=== PATIENT | male | born 1975 ===

== ENCOUNTER → 2017-09-27 | Outpatient (CLI) | payer OTHER | END | disposition home or self-care (01) | LOC: LAB 08:15 | DX: I10 Essential (primary) hypertension (principal); E11.9 Type 2 diabetes mellitus without complications; E03.8 Other specified hypothyroidism; E78.2 Mixed hyperlipidemia; K92.1 Melena; D64.0 Hereditary sideroblastic anemia; M81.0 Age-related osteoporosis without current pathological fracture; N40.0 Benign prostatic hyperplasia without lower urinary tract symptoms ==

== ENCOUNTER 2020-10-01 09:18 | Outpatient (CLI) | payer OTHER | END 2020-10-01 16:26 | disposition home or self-care (01) | LOC: OFIC 805 09:18 | PROVIDERS: ATTEND Otolaryngology | DX: H61.111 Acquired deformity of pinna, right ear (principal) ==

== ENCOUNTER 2020-10-12 11:44 | Outpatient (CLI) | payer OTHER | END 2020-10-12 16:04 | disposition home or self-care (01) | LOC: OFIC 805 11:44 | PROVIDERS: ATTEND Otolaryngology | DX: H61.111 Acquired deformity of pinna, right ear (principal) ==

== ENCOUNTER 2023-11-08 10:25 | Outpatient (CLI) | payer OTHER | END 2023-11-08 10:33 | disposition home or self-care (01) | LOC: TOM 10:25 | PROVIDERS: ATTEND Psychiatry & Neurology Neurology | DX: G44.219 Episodic tension-type headache, not intractable (principal) ==